=== PATIENT | male | born 1945 | race African-American/Black ===

== ENCOUNTER 2018-08-10 03:36 | Inpatient (IN) | payer OTHER ==
[~2018-08-10] VITALS: Ht 160 cm; Wt 65.8 kg
[2018-08-10] MEDS ORDERED: SODIUM CHLORIDE 0.9% 1,000 ML IV SCH (04:15)
[2018-08-10] MEDS: ALBUTEROL (0.083%) 2.5MG/3ML NEB HHN SCH ×2 (04:30→06:08)
[2018-08-10] MEDS ORDERED: IPRATROPIUM BROMIDE (0.02%) 0.5MG/2.5ML NEB ONE (04:44)
[2018-08-10] MEDS ORDERED: METHYLPREDNISOLONE SOD SUCC 125 MG/2 ML VIAL IV STA (04:49)
[2018-08-10] MEDS ORDERED: IPRATROPIUM BROMIDE (0.02%) 0.5MG/2.5ML NEB HHN STA (04:49)
[2018-08-10 04:59] LABS: BG BASE EXCESS -1.7 mmol/L (-2.0-2.0); BG CARBOXYHEMOGLOBIN 0.4 % (0.5-1.5); BG DEOXYHEMOGLOBIN 2.4 % (0.0-5.0); BG FRACTION INSPIRED OXYGEN 45; BG HCO3 ACT 23.2 mmol/L (22.0-26.0); BG METHEMOGLOBIN 0.3 % (0.0-1.5); BG OXYGEN SATURATION 97.6 % (92.0-98.5); BG OXYHEMOGLOBIN 96.9 % (94.0-97.0); BG PCO2 40.1 mmHg (35.0-45.0); BG PH 7.381 (7.350-7.450); BG PO2 103.9 mmHg (75.0-100.0); BG SAMPLE SITE RIGHT RADIAL; BG TOTAL HEMOGLOBIN 10.2 g/dL (12.0-18.0); BG VENT MODE MASK - SIMPLE
[2018-08-10 05:20] LABS: HEMATOCRIT. 31.4 % (42.0-52.0); HEMOGLOBIN. 9.8 g/dL (14.0-18.0); MEAN CORPUSCULAR HEMOGLOBIN 23.7 pg (28.0-32.0); MEAN CORPUSCULAR VOLUME 75.8 fL (80.0-94.0); MEAN PLATELET VOLUME 7.9 fl (7.4-10.4); PLATELET 373 x1000/uL (130-400); RED BLOOD CELL COUNT 4.14 mill/uL (4.7-6.1); RED CELL DISTRIBUTION WIDTH 20.9 % (11.6-14.6)
[2018-08-10 05:23] LABS: CHLORIDE 106 mEq/L (98-107)
[2018-08-10 06:37] LABS: PLATELET ESTIMATE NORMAL
[2018-08-10] MEDS ORDERED: DOCUSATE SODIUM 100MG CAPSULE PO PRN (13:45)
[2018-08-10] MEDS ORDERED: ONDANSETRON HCL 4MG/2ML INJ IV PRN (13:45)
[2018-08-10] MEDS ORDERED: ACETAMINOPHEN 650MG SUPP PR PRN (13:45)
[2018-08-10] MEDS ORDERED: IPRATROPIUM/ALBUTEROL 0.5-3(2.5)MG/3ML NEB INH PRN (13:45)
[2018-08-10] MEDS ORDERED: ACETAMINOPHEN 325MG TABLET PO PRN (13:45)
[2018-08-10] MEDS ORDERED: GUAIFENESIN 200MG/10ML SUGAR FREE UDC PO PRN (13:45)
[2018-08-10] MEDS ORDERED: DEXTROSE 50% WATER 50ML SYRINGE IV PRN (13:45)
[2018-08-10] MEDS ORDERED: IPRATROPIUM/ALBUTEROL 0.5-3(2.5)MG/3ML NEB INH SCH (13:45)
[2018-08-10] MEDS ORDERED: CLONIDINE 0.1MG TABLET PO PRN (13:45)
[2018-08-10] MEDS ORDERED: HYDROCODONE/ACETAMINOPHEN 5/325MG TABLET PO PRN (13:45)
[2018-08-10] MEDS ORDERED: LORAZEPAM 0.5MG TABLET PO PRN (13:45)
[2018-08-10] MEDS ORDERED: MAGNESIUM/ALUMINUM HYDROXIDE/SIMETHICONE 30ML UDC PO PRN (13:45)
[2018-08-10] MEDS ORDERED: NA PHOS,M-B/NA PHOS,DI-BA ENEMA 118ML PR PRN (13:45)
[2018-08-10] MEDS ORDERED: DIPHENHYDRAMINE 50MG/ML VIAL IV PRN (13:45)
[2018-08-10] MEDS ORDERED: LOSARTAN POTASSIUM 25 MG TABLET PO SCH (14:00)
[2018-08-10] MEDS ORDERED: POTASSIUM CHLORIDE 20MEQ TABLET SR PO ONE (14:00)
[2018-08-10] MEDS ORDERED: LEVOFLOXACIN 500MG PREMIX 100 ML IV SCH ×2 (14:00→14:30)
[2018-08-10] MEDS: AMLODIPINE 5MG TABLET PO SCH (15:00)
[2018-08-10] MEDS: METHYLPREDNISOLONE SOD SUCC 40 MG/ML VIAL IV SCH ×2 (15:06→23:04)
[2018-08-10 15:59] LABS: BG BASE EXCESS -2.1 mmol/L (-2.0-2.0); BG CARBOXYHEMOGLOBIN 0.7 % (0.5-1.5); BG DEOXYHEMOGLOBIN 9.7 % (0.0-5.0); BG FRACTION INSPIRED OXYGEN 21; BG HCO3 ACT 21.7 mmol/L (22.0-26.0); BG METHEMOGLOBIN 0.4 % (0.0-1.5); BG OXYGEN SATURATION 90.2 % (92.0-98.5); BG OXYHEMOGLOBIN 89.2 % (94.0-97.0); BG PCO2 33.4 mmHg (35.0-45.0); BG PO2 58.6 mmHg (75.0-100.0); BG SAMPLE SITE RIGHT RADIAL; BG TOTAL HEMOGLOBIN 10.6 g/dL (12.0-18.0); BG VENT MODE ROOM AIR
[2018-08-10 16:34] VITALS: BP 176/74
[2018-08-10 17:00] VITALS: BP 134/69
[2018-08-10] MEDS: BLOOD SUGAR DIAGNOSTIC STRIP TEST SCH ×2 (18:05→20:19)
[2018-08-10] MEDS: FUROSEMIDE 40MG/4ML VIAL IV SCH (18:10)
[2018-08-10] MEDS: LOSARTAN POTASSIUM 25 MG TABLET PO SCH (18:10)
[2018-08-10] MEDS: INSULIN LISPRO 100 UNITS/ML SUBCUT SCH ×2 (18:11→20:54)
[2018-08-10] MEDS: ENOXAPARIN 40MG/0.4ML SYR SUBCUT SCH (18:11)
[2018-08-10 20:00] VITALS: BP 153/74
[2018-08-10] MEDS: IPRATROPIUM/ALBUTEROL 0.5-3(2.5)MG/3ML NEB INH SCH (21:48)
[2018-08-11] VITALS: BP_SYST 165; BP_SYST 166; BP_DIAS 56; BP_DIAS 76
[2018-08-11] MEDS ORDERED: P20 MT (01:53)
[2018-08-11] MEDS ORDERED: POLY17PO3 MT (01:53)
[2018-08-11] MEDS ORDERED: CARV25TA47 MT (01:53)
[2018-08-11] MEDS ORDERED: AMLO10TA80 MT (01:53)
[2018-08-11] MEDS ORDERED: TAMS0.4C31 MT (01:53)
[2018-08-11] MEDS ORDERED: LORA10CA MT (01:53)
[2018-08-11] MEDS ORDERED: FURO-152 MT (01:53)
[2018-08-11] MEDS ORDERED: LOSA100T32 MT (01:53)
[2018-08-11] MEDS ORDERED: LEVA1.256 IH (01:53)
[2018-08-11] MEDS ORDERED: METF-414 MT (01:53)
[2018-08-11] MEDS ORDERED: LEVA1.2526 NEB (01:53)
[2018-08-11] MEDS ORDERED: CHOL100036 MT (01:53)
[2018-08-11] MEDS ORDERED: MONT10TA24 MT (01:53)
[2018-08-11] MEDS ORDERED: FLUT1DIS6 INH (01:53)
[2018-08-11] MEDS ORDERED: FERR-71 MT (01:53)
[2018-08-11] MEDS ORDERED: SITA100T11 MT (01:53)
[2018-08-11] MEDS ORDERED: OMEP20CA5 MT (01:53)
[2018-08-11] MEDS: IPRATROPIUM/ALBUTEROL 0.5-3(2.5)MG/3ML NEB INH SCH ×5 (02:44→16:13)
[2018-08-11 04:00] VITALS: BP 170/79
[2018-08-11 04:26] LABS: CLARITY URINE CLEAR (CLEAR); COLOR URINE YELLOW (YELLOW); KETONES URINE TRACE (NEGATIVE); LEUKOCYTE ESTERASE URINE TRACE (NEGATIVE); NITRITE URINE NEGATIVE (NEGATIVE); OCCULT BLOOD URINE TRACE (NEGATIVE); PH URINE 5.5 (4.5-8.0); PROTEIN URINE NEGATIVE (NEGATIVE); SPECIFIC GRAVITY URINE 1.011 (1.005-1.030); UROBILINOGEN URINE 0.2 E.U./dL (0.2-1.0)
[2018-08-11 04:41] LABS: *AMPHETAMINES SCREEN URINE NEGATIVE (NEGATIVE); *BARBITURATES SCREEN URINE NEGATIVE (NEGATIVE); *BENZODIAZEPINES SCREEN URINE NEGATIVE (NEGATIVE); *COCAINE SCREEN URINE NEGATIVE (NEGATIVE); METHADONE URINE SCREEN NEGATIVE (NEGATIVE); OPIATES URINE SCREEN NEGATIVE (NEGATIVE); PHENCYCLIDINE URINE SCREEN NEGATIVE (NEGATIVE)
[2018-08-11 04:42] LABS: CANNABINOID URINE SCREEN NEGATIVE (NEGATIVE)
[2018-08-11] MEDS: BLOOD SUGAR DIAGNOSTIC STRIP TEST SCH ×3 (05:50→17:13)
[2018-08-11] MEDS: METHYLPREDNISOLONE SOD SUCC 40 MG/ML VIAL IV SCH ×2 (05:51→14:00)
[2018-08-11] MEDS: INSULIN LISPRO 100 UNITS/ML SUBCUT SCH ×3 (06:16→17:22)
[2018-08-11 06:54] LABS: HEMATOCRIT. 29.1 % (42.0-52.0); HEMOGLOBIN. 9.2 g/dL (14.0-18.0); MEAN CORPUSCULAR HEMOGLOBIN 23.7 pg (28.0-32.0); MEAN CORPUSCULAR VOLUME 74.8 fL (80.0-94.0); MEAN PLATELET VOLUME 8.1 fl (7.4-10.4); PLATELET 350 x1000/uL (130-400); RED BLOOD CELL COUNT 3.89 mill/uL (4.7-6.1); RED CELL DISTRIBUTION WIDTH 20.7 % (11.6-14.6)
[2018-08-11 07:21] LABS: CHLORIDE 107 mEq/L (98-107)
[2018-08-11 07:32] LABS: HDL CHOLESTEROL 52 mg/dL (40-59)
[2018-08-11 07:34] LABS: LDL CHOLESTEROL 57 mg/dL (5-100); T4 FREE 1.14 ng/dL (0.76-1.46)
[2018-08-11 08:24] VITALS: BP 158/57
[2018-08-11] MEDS: AMLODIPINE 5MG TABLET PO SCH (08:38)
[2018-08-11] MEDS: LOSARTAN POTASSIUM 25 MG TABLET PO SCH (08:39)
[2018-08-11] MEDS: FUROSEMIDE 40MG/4ML VIAL IV SCH ×2 (08:39→17:00)
[2018-08-11] MEDS ORDERED: POTASSIUM CHLORIDE INJ 40 MEQ in DEXT 5% WATER 250 ML IV NR (11:00)
[2018-08-11] MEDS ORDERED: INSULIN GLARGINE UD 100 UNITS/ML SYR SUBCUT NR (11:00)
[2018-08-11 12:00] VITALS: BP 142/61
[2018-08-11 12:35] LABS: PLATELET ESTIMATE NORMAL
[2018-08-11] MEDS ORDERED: POTASSIUM CHLORIDE 20MEQ TABLET SR PO SCH (13:00)
[2018-08-11] MEDS ORDERED: CARVEDILOL 3.125 MG TABLET PO NR (13:00)
[2018-08-11 13:42] VITALS: BP 142/61
[2018-08-11] MEDS ORDERED: LEVOFLOXACIN 500MG PREMIX 100 ML IV SCH (14:00)
[2018-08-11 16:01] VITALS: BP 160/79
[2018-08-11] MEDS: ENOXAPARIN 40MG/0.4ML SYR SUBCUT SCH (17:20)
== END 2018-08-11 19:55 | disposition home or self-care (01) | DRG 291 ==
LOC: ER 03:36 → 8WST 05:41 → EDBEDREQTM 05:45 → EDBEDREQ 05:45 → ENRESERV 07:04 → CANRESERV 07:04 → ENRESERV 15:17
PROVIDERS: ADMIT Internal Medicine; ATTEND Internal Medicine
DX: I11.0 Hypertensive heart disease with heart failure (principal); J18.9 Pneumonia, unspecified organism; J44.1 Chronic obstructive pulmonary disease with (acute) exacerbation; E87.2 Acidosis; J44.0 Chronic obstructive pulmonary disease with (acute) lower respiratory infection; I69.354 Hemiplegia and hemiparesis following cerebral infarction affecting left non-dominant side; R65.10 Systemic inflammatory response syndrome (SIRS) of non-infectious origin without acute organ dysfunction; I50.43 Acute on chronic combined systolic (congestive) and diastolic (congestive) heart failure; E11.9 Type 2 diabetes mellitus without complications; E78.5 Hyperlipidemia, unspecified; E87.6 Hypokalemia; D64.9 Anemia, unspecified; Z82.49 Family history of ischemic heart disease and other diseases of the circulatory system; Z87.891 Personal history of nicotine dependence; Z83.3 Family history of diabetes mellitus
CPT/HCPCS: 36415; 36600; 71045; 80061; 80305; 82375; 82805; 82962; 83036; 83605; 83880; 84439; 84443; 84484; 85379; 87077; 93005; 93306; 93970; 94640; 97162; 99291; C1893; J1650; J1815; J1940; J1956; J2920; J2930; J3480; J7040; J7060; J7611; J7620

== ENCOUNTER 2019-04-12 10:06 | Inpatient (IN) | payer OTHER ==
[~2019-04-12] VITALS: Ht 160 cm; Wt 74.4 kg
[~2019-04-12 10:06] MED LIST: AMLO10TA80 MT; CARV25TA47 MT; CHOL100036 MT; FERR-71 MT; FLUT1DIS6 INH; FURO-152 MT; LEVA1.2526 NEB; LEVA1.256 IH; LORA10CA MT; LOSA100T32 MT; METF-414 MT; MONT10TA24 MT; OMEP20CA14 MT; POLY17PO3 MT; SITA100T11 MT; TAMS0.4C31 MT
[2019-04-12] MEDS ORDERED: METHYLPREDNISOLONE SOD SUCC 125 MG/2 ML VIAL IV STA (10:10)
[2019-04-12] MEDS ORDERED: ALBUTEROL (0.083%) 2.5MG/3ML NEB HHN STA (10:10)
[2019-04-12] MEDS ORDERED: IPRATROPIUM BROMIDE (0.02%) 0.5MG/2.5ML NEB HHN STA (10:10)
[2019-04-12] MEDS ORDERED: FUROSEMIDE 40MG/4ML VIAL IV ONE (10:15)
[2019-04-12 10:33] LABS: BASOPHILS % 0.3 % (0.0-2.0); EOSINOPHILS % 0.3 % (0.0-5.0); HEMATOCRIT. 39.8 % (42.0-52.0); HEMOGLOBIN. 13.3 g/dL (14.0-18.0); LYMPHOCYTES % 8.8 % (20.0-50.0); MEAN CORPUSCULAR HEMOGLOBIN 30.9 pg (28.0-32.0); MEAN CORPUSCULAR VOLUME 92.3 fL (80.0-94.0); MEAN PLATELET VOLUME 9.7 fl (7.4-10.4); MONOCYTES % 5.8 % (2.0-8.0); NEUTROPHILS % 84.8 % (40.0-76.0); PLATELET 196 x1000/uL (130-400); RED BLOOD CELL COUNT 4.31 mill/uL (4.7-6.1); RED CELL DISTRIBUTION WIDTH 14.4 % (11.6-14.6)
[2019-04-12 10:38] LABS: CHLORIDE 106 mEq/L (98-107)
[2019-04-12 17:00] VITALS: BP 164/86
[2019-04-12] MEDS ORDERED: ONDANSETRON HCL 4MG/2ML INJ IV PRN (17:45)
[2019-04-12] MEDS ORDERED: DEXTROSE 50% WATER 50ML SYRINGE IV PRN (17:45)
[2019-04-12] MEDS ORDERED: HYDROCODONE/ACETAMINOPHEN 5/325MG TABLET PO PRN (17:45)
[2019-04-12] MEDS ORDERED: DOCUSATE SODIUM 100MG CAPSULE PO PRN (17:45)
[2019-04-12] MEDS ORDERED: IPRATROPIUM/ALBUTEROL 0.5-3(2.5)MG/3ML NEB NEB PRN (17:45)
[2019-04-12] MEDS ORDERED: CLONIDINE 0.1MG TABLET PO PRN (17:45)
[2019-04-12] MEDS ORDERED: LORAZEPAM 0.5MG TABLET PO PRN (17:45)
[2019-04-12] MEDS ORDERED: MAGNESIUM/ALUMINUM HYDROXIDE/SIMETHICONE 30ML UDC PO PRN (17:45)
[2019-04-12] MEDS ORDERED: GUAIFENESIN 200MG/10ML SUGAR FREE UDC PO PRN (17:45)
[2019-04-12] MEDS ORDERED: ACETAMINOPHEN 325MG TABLET PO PRN (17:45)
[2019-04-12] MEDS ORDERED: NA PHOS,M-B/NA PHOS,DI-BA ENEMA 118ML PR PRN (17:45)
[2019-04-12] MEDS ORDERED: ACETAMINOPHEN 650MG SUPP PR PRN (17:45)
[2019-04-12] MEDS ORDERED: DIPHENHYDRAMINE 50MG/ML VIAL IV PRN (17:45)
[2019-04-12] MEDS: FERROUS SULFATE 325MG TABLET PO SCH ×2 (18:10→19:04)
[2019-04-12] MEDS: MONTELUKAST SODIUM 10MG TABLET PO SCH (19:04)
[2019-04-12] MEDS: AMLODIPINE 10MG TABLET PO SCH (19:04)
[2019-04-12] MEDS: METFORMIN HCL 500MG TABLET PO SCH (19:04)
[2019-04-12] MEDS: METHYLPREDNISOLONE SOD SUCC 40 MG/ML VIAL IV SCH (19:04)
[2019-04-12] MEDS: INSULIN LISPRO 100 UNITS/ML SUBCUT SCH ×2 (19:23→21:54)
[2019-04-12] MEDS: BLOOD SUGAR DIAGNOSTIC STRIP TEST SCH ×2 (19:24→21:53)
[2019-04-12] MEDS ORDERED: INSULIN LISPRO 100 UNITS/ML SUBCUT NR (19:52)
[2019-04-12 19:59] LABS: INR 1.1; PROTHROMBIN TIME 10.9 sec (9.6-11.0)
[2019-04-12] MEDS ORDERED: LEVOFLOXACIN 750MG PREMIX 150 ML IV NR (20:00)
[2019-04-12 20:03] LABS: BG BASE EXCESS 1.7 mmol/L (-2.0-2.0); BG CARBOXYHEMOGLOBIN 0.1 % (0.5-1.5); BG DEOXYHEMOGLOBIN 8.3 % (0.0-5.0); BG FRACTION INSPIRED OXYGEN 21; BG HCO3 ACT 25.3 mmol/L (22.0-26.0); BG METHEMOGLOBIN 0.3 % (0.0-1.5); BG OXYGEN SATURATION 91.7 % (92.0-98.5); BG OXYHEMOGLOBIN 91.3 % (94.0-97.0); BG PCO2 36.6 mmHg (35.0-45.0); BG PH 7.458 (7.350-7.450); BG PO2 59.3 mmHg (75.0-100.0); BG SAMPLE SITE RIGHT RADIAL; BG VENT MODE ROOM AIR
[2019-04-12] MEDS: IPRATROPIUM/ALBUTEROL 0.5-3(2.5)MG/3ML NEB NEB SCH (20:30)
[2019-04-12] MEDS: FAMOTIDINE 20MG TABLET PO SCH (20:31)
[2019-04-12] MEDS: ENOXAPARIN 30MG/0.3ML SYR SUBCUT SCH (20:31)
[2019-04-12 21:46] LABS: CLARITY URINE CLEAR (CLEAR); COLOR URINE YELLOW (YELLOW); KETONES URINE NEGATIVE (NEGATIVE); LEUKOCYTE ESTERASE URINE NEGATIVE (NEGATIVE); NITRITE URINE NEGATIVE (NEGATIVE); OCCULT BLOOD URINE NEGATIVE (NEGATIVE); PH URINE 6.5 (4.5-8.0); PROTEIN URINE TRACE (NEGATIVE); SPECIFIC GRAVITY URINE 1.018 (1.005-1.030); UROBILINOGEN URINE 0.2 E.U./dL (0.2-1.0)
[2019-04-12] MEDS ORDERED: INSULIN GLARGINE UD 100 UNITS/ML SYR SUBCUT SCH (22:00)
[2019-04-12 22:03] LABS: *AMPHETAMINES SCREEN URINE NEGATIVE (NEGATIVE); *BARBITURATES SCREEN URINE NEGATIVE (NEGATIVE)
[2019-04-12 22:04] LABS: *BENZODIAZEPINES SCREEN URINE NEGATIVE (NEGATIVE); *COCAINE SCREEN URINE NEGATIVE (NEGATIVE); METHADONE URINE SCREEN NEGATIVE (NEGATIVE); OPIATES URINE SCREEN NEGATIVE (NEGATIVE); PHENCYCLIDINE URINE SCREEN NEGATIVE (NEGATIVE)
[2019-04-12 22:05] LABS: CANNABINOID URINE SCREEN NEGATIVE (NEGATIVE)
[2019-04-12 23:47] LABS: CREATINE KINASE 48 IU/L (39-308)
[2019-04-12 23:48] LABS: CREATINE KINASE MB FRACTION < 1.0 ng/mL (0.5-3.6)
[2019-04-13] VITALS (9 sets, daily range): BP systolic 128–171; BP diastolic 80–106
[2019-04-13] MEDS: IPRATROPIUM/ALBUTEROL 0.5-3(2.5)MG/3ML NEB NEB SCH ×4 (02:55→20:45)
[2019-04-13] MEDS: METHYLPREDNISOLONE SOD SUCC 40 MG/ML VIAL IV SCH ×3 (04:42→17:34)
[2019-04-13] MEDS: BLOOD SUGAR DIAGNOSTIC STRIP TEST SCH ×4 (05:33→19:57)
[2019-04-13] MEDS: FERROUS SULFATE 325MG TABLET PO SCH ×2 (08:10→17:27)
[2019-04-13] MEDS: INSULIN LISPRO 100 UNITS/ML SUBCUT SCH ×4 (08:10→19:57)
[2019-04-13 08:43] LABS: BASOPHILS % 0.1 % (0.0-2.0); HEMOGLOBIN. 14.5 g/dL (14.0-18.0); LYMPHOCYTES % 7.3 % (20.0-50.0); MEAN CORPUSCULAR HEMOGLOBIN 31.1 pg (28.0-32.0); MEAN CORPUSCULAR VOLUME 92.2 fL (80.0-94.0); MEAN PLATELET VOLUME 9.9 fl (7.4-10.4); MONOCYTES % 3.7 % (2.0-8.0); NEUTROPHILS % 88.9 % (40.0-76.0); PLATELET 218 x1000/uL (130-400); RED BLOOD CELL COUNT 4.67 mill/uL (4.7-6.1)
[2019-04-13] MEDS ORDERED: CHOLECALCIFEROL (D3) 1000 UNIT TABLET PO SCH (09:00)
[2019-04-13] MEDS ORDERED: LINAGLIPTIN 5MG TABLET PO SCH (09:00)
[2019-04-13] MEDS ORDERED: CHOLECALCIFEROL MT SCH (09:00)
[2019-04-13] MEDS ORDERED: LOSARTAN POTASSIUM 100 MG TABLET PO SCH (09:00)
[2019-04-13] MEDS ORDERED: TAMSULOSIN HCL 0.4MG SR CAPSULE PO SCH (09:00)
[2019-04-13] MEDS ORDERED: MEDICATION NOT ON FORMULARY EA (Loratadine (Claritin) 1 CAP) MT SCH (09:00)
[2019-04-13] MEDS ORDERED: FUROSEMIDE 40MG/4ML VIAL IVP SCH (09:00)
[2019-04-13] MEDS ORDERED: LORATADINE 10MG TABLET PO SCH (09:00)
[2019-04-13] MEDS ORDERED: MEDICATION NOT ON FORMULARY EA (Sitagliptin Phosphate (Januvia) 1 TAB) MT SCH (09:00)
[2019-04-13] MEDS ORDERED: POLYETHYLENE GLYCOL 3350 (17GM) 1 DOSE PACK PO SCH (09:00)
[2019-04-13 09:09] LABS: CHLORIDE 103 mEq/L (98-107)
[2019-04-13 09:16] LABS: LDL CHOLESTEROL 85 mg/dL (5-100)
[2019-04-13 09:17] LABS: CREATINE KINASE 51 IU/L (39-308)
[2019-04-13 09:18] LABS: CREATINE KINASE MB FRACTION 1.2 ng/mL (0.5-3.6); HDL CHOLESTEROL 76 mg/dL (40-59); T4 FREE 1.25 ng/dL (0.76-1.46)
[2019-04-13] MEDS: AMLODIPINE 10MG TABLET PO SCH (09:44)
[2019-04-13] MEDS: METFORMIN HCL 500MG TABLET PO SCH ×2 (09:45→17:34)
[2019-04-13] MEDS: ENOXAPARIN 30MG/0.3ML SYR SUBCUT SCH (09:45)
[2019-04-13] MEDS ORDERED: POTASSIUM CHLORIDE 20MEQ TABLET SR PO NR (11:45)
[2019-04-13] MEDS ORDERED: LEVOFLOXACIN 500MG PREMIX 100 ML IV SCH (14:00)
[2019-04-13] MEDS ORDERED: P20 PO (15:36)
[2019-04-13] MEDS ORDERED: METF-416 MT (15:36)
[2019-04-13] MEDS ORDERED: LEVO500T2 MT (15:36)
[2019-04-13] MEDS: MONTELUKAST SODIUM 10MG TABLET PO SCH (17:34)
[2019-04-13] MEDS ORDERED: DILTIAZEM HCL 30MG TABLET PO SCH (18:00)
[2019-04-13] MEDS: FAMOTIDINE 20MG TABLET PO SCH (19:49)
[2019-04-14] MEDS ORDERED: ENOXAPARIN 40MG/0.4ML SYR SUBCUT SCH (09:00)
== END 2019-04-13 21:31 | disposition home health service (06) | DRG 190 ==
LOC: ER 10:06 → 7WST 15:48 → EDBEDREQ 15:57 → ENRESERV 16:05
PROVIDERS: ADMIT Internal Medicine; ATTEND Internal Medicine
PROC: 5A09357 Assistance with Respiratory Ventilation, Less than 24 Consecutive Hours, Continuous Positive Airway Pressure (ICD-10-PCS; principal; 2019-04-12)
DX: J44.1 Chronic obstructive pulmonary disease with (acute) exacerbation (principal); I50.43 Acute on chronic combined systolic (congestive) and diastolic (congestive) heart failure; I69.354 Hemiplegia and hemiparesis following cerebral infarction affecting left non-dominant side; D64.9 Anemia, unspecified; E11.65 Type 2 diabetes mellitus with hyperglycemia; E78.5 Hyperlipidemia, unspecified; J06.9 Acute upper respiratory infection, unspecified; T38.0X5A Adverse effect of glucocorticoids and synthetic analogues, initial encounter; I11.0 Hypertensive heart disease with heart failure; N40.0 Benign prostatic hyperplasia without lower urinary tract symptoms; Z79.899 Other long term (current) drug therapy; Z79.84 Long term (current) use of oral hypoglycemic drugs; Z87.891 Personal history of nicotine dependence; Y92.89 Other specified places as the place of occurrence of the external cause
CPT/HCPCS: 36415; 36600; 71045; 80053; 80061; 80305; 81003; 82375; 82550; 82553; 82805; 82962; 83036; 83880; 84439; 84443; 84484; 85025; 87077; 87186; 87804; 93005; 93306; 93970; 94640; 94660; 96374; 97162; 99291; J1650; J1815; J1940; J1956; J2920; J2930; J7611; J7620

== ENCOUNTER 2019-05-09 09:17 | Inpatient (IN) | payer OTHER ==
[~2019-05-09] VITALS: Ht 160 cm; Wt 76.7 kg
[2019-05-09] VITALS (8 sets, daily range): BP systolic 136–156; BP diastolic 81–98
[~2019-05-09 09:17] MED LIST changes: -FERR-71 MT; +LEVO500T2 MT; -METF-414 MT; +METF-416 MT; -MONT10TA24 MT; +MONT10TA26 MT; +P20 PO
[2019-05-09] MEDS ORDERED: METHYLPREDNISOLONE SOD SUCC 125 MG/2 ML VIAL IV STA (09:27)
[2019-05-09] MEDS ORDERED: ALBUTEROL (0.083%) 2.5MG/3ML NEB HHN STA (09:27)
[2019-05-09] MEDS ORDERED: MAGNESIUM 2 G PREMIX 50 ML IV STA (09:27)
[2019-05-09] MEDS ORDERED: IPRATROPIUM BROMIDE (0.02%) 0.5MG/2.5ML NEB HHN STA (09:27)
[2019-05-09 10:15] LABS: BASOPHILS % 0.6 % (0.0-2.0); EOSINOPHILS % 1.2 % (0.0-5.0); HEMATOCRIT. 37.4 % (42.0-52.0); HEMOGLOBIN. 12.7 g/dL (14.0-18.0); LYMPHOCYTES % 21.9 % (20.0-50.0); MEAN CORPUSCULAR VOLUME 91.5 fL (80.0-94.0); MEAN PLATELET VOLUME 10.1 fl (7.4-10.4); MONOCYTES % 8.7 % (2.0-8.0); NEUTROPHILS % 67.6 % (40.0-76.0); PLATELET 236 x1000/uL (130-400); RED BLOOD CELL COUNT 4.09 mill/uL (4.7-6.1); RED CELL DISTRIBUTION WIDTH 14.3 % (11.6-14.6)
[2019-05-09 10:23] LABS: CHLORIDE 106 mEq/L (98-107)
[2019-05-09] MEDS ORDERED: MAGNESIUM/ALUMINUM HYDROXIDE/SIMETHICONE 30ML UDC PO PRN (13:15)
[2019-05-09] MEDS ORDERED: ONDANSETRON HCL 4MG/2ML INJ IV PRN (13:15)
[2019-05-09] MEDS ORDERED: GUAIFENESIN 200MG/10ML SUGAR FREE UDC PO PRN (13:15)
[2019-05-09] MEDS ORDERED: IPRATROPIUM/ALBUTEROL 0.5-3(2.5)MG/3ML NEB NEB PRN (13:15)
[2019-05-09] MEDS ORDERED: NA PHOS,M-B/NA PHOS,DI-BA ENEMA 118ML PR PRN (13:15)
[2019-05-09] MEDS ORDERED: LORAZEPAM 0.5MG TABLET PO PRN ×2 (13:15→14:45)
[2019-05-09] MEDS ORDERED: ACETAMINOPHEN 325MG TABLET PO PRN (13:15)
[2019-05-09] MEDS ORDERED: HYDROCODONE/ACETAMINOPHEN 5/325MG TABLET PO PRN ×2 (13:15→14:45)
[2019-05-09] MEDS ORDERED: ACETAMINOPHEN 650MG SUPP PR PRN (13:15)
[2019-05-09] MEDS ORDERED: LEVOFLOXACIN 500MG PREMIX 100 ML IV SCH (13:15)
[2019-05-09] MEDS ORDERED: IPRATROPIUM/ALBUTEROL 0.5-3(2.5)MG/3ML NEB NEB SCH (13:15)
[2019-05-09] MEDS ORDERED: DIPHENHYDRAMINE 50MG/ML VIAL IV PRN (13:15)
[2019-05-09] MEDS ORDERED: METHYLPREDNISOLONE SOD SUCC 40 MG/ML VIAL IV SCH (13:15)
[2019-05-09] MEDS ORDERED: DOCUSATE SODIUM 100MG CAPSULE PO PRN (13:15)
[2019-05-09] MEDS ORDERED: CLONIDINE 0.1MG TABLET PO PRN (13:15)
[2019-05-09] MEDS ORDERED: FUROSEMIDE 40MG/4ML VIAL IVP SCH (13:15)
[2019-05-09 13:27] LABS: BG BASE EXCESS -3.9 mmol/L (-2.0-2.0); BG CARBOXYHEMOGLOBIN 0.3 % (0.5-1.5); BG DEOXYHEMOGLOBIN 3.3 % (0.0-5.0); BG FRACTION INSPIRED OXYGEN 40; BG HCO3 ACT 19.5 mmol/L (22.0-26.0); BG METHEMOGLOBIN 0.1 % (0.0-1.5); BG OXYGEN SATURATION 96.7 % (92.0-98.5); BG OXYHEMOGLOBIN 96.3 % (94.0-97.0); BG PCO2 30.4 mmHg (35.0-45.0); BG PH 7.424 (7.350-7.450); BG SAMPLE SITE RIGHT RADIAL; BG TOTAL HEMOGLOBIN 12.3 g/dL (12.0-18.0); BG VENT MODE NASAL CANNULA
[2019-05-09] MEDS ORDERED: AMLODIPINE 10MG TABLET PO SCH (14:00)
[2019-05-09] MEDS ORDERED: DEXTROSE 50% WATER 50ML SYRINGE IV PRN ×2 (14:15→14:45)
[2019-05-09 14:49] LABS: CREATINE KINASE 82 IU/L (39-308)
[2019-05-09 14:52] LABS: CREATINE KINASE MB FRACTION < 1.0 ng/mL (0.5-3.6)
[2019-05-09] MEDS ORDERED: BLOOD SUGAR DIAGNOSTIC STRIP TEST SCH (17:00)
[2019-05-09] MEDS: BLOOD SUGAR DIAGNOSTIC STRIP TEST SCH ×2 (17:47→21:00)
[2019-05-09] MEDS: METFORMIN HCL 500MG TABLET PO SCH (18:01)
[2019-05-09] MEDS: AMLODIPINE 10MG TABLET PO SCH (18:01)
[2019-05-09] MEDS: METHYLPREDNISOLONE SOD SUCC 40 MG/ML VIAL IV SCH (18:01)
[2019-05-09] MEDS: FUROSEMIDE 40MG/4ML VIAL IVP SCH (18:01)
[2019-05-09] MEDS: LEVOFLOXACIN 500MG PREMIX 100 ML IV SCH (18:02)
[2019-05-09] MEDS: INSULIN LISPRO 100 UNITS/ML SUBCUT SCH ×2 (18:03→22:08)
[2019-05-09] MEDS ORDERED: INSULIN LISPRO 100 UNITS/ML SUBCUT SCH (18:20)
[2019-05-09] MEDS: IPRATROPIUM/ALBUTEROL 0.5-3(2.5)MG/3ML NEB NEB SCH (20:22)
[2019-05-10] VITALS (18 sets, daily range): BP systolic 130–148; BP diastolic 78–97
[2019-05-10 00:33] LABS: CREATINE KINASE 74 IU/L (39-308)
[2019-05-10 00:34] LABS: CREATINE KINASE MB FRACTION < 1.0 ng/mL (0.5-3.6)
[2019-05-10] MEDS: METHYLPREDNISOLONE SOD SUCC 40 MG/ML VIAL IV SCH ×3 (01:08→16:20)
[2019-05-10] MEDS: IPRATROPIUM/ALBUTEROL 0.5-3(2.5)MG/3ML NEB NEB SCH ×4 (02:27→19:53)
[2019-05-10] MEDS: BLOOD SUGAR DIAGNOSTIC STRIP TEST SCH ×4 (07:51→21:00)
[2019-05-10] MEDS: INSULIN LISPRO 100 UNITS/ML SUBCUT SCH ×4 (08:32→22:14)
[2019-05-10] MEDS: METFORMIN HCL 500MG TABLET PO SCH ×2 (08:39→18:17)
[2019-05-10] MEDS: AMLODIPINE 10MG TABLET PO SCH (08:40)
[2019-05-10] MEDS: TAMSULOSIN HCL 0.4MG SR CAPSULE PO SCH (08:40)
[2019-05-10] MEDS: LOSARTAN POTASSIUM 100 MG TABLET PO SCH (08:40)
[2019-05-10] MEDS: CHOLECALCIFEROL (D3) 1000 UNIT TABLET PO SCH (08:40)
[2019-05-10] MEDS: LINAGLIPTIN 5MG TABLET PO SCH (08:46)
[2019-05-10] MEDS: FUROSEMIDE 40MG/4ML VIAL IVP SCH (08:47)
[2019-05-10] MEDS ORDERED: TAMSULOSIN HCL 0.4MG SR CAPSULE PO SCH (09:00)
[2019-05-10] MEDS ORDERED: LOSARTAN POTASSIUM 100 MG TABLET PO SCH (09:00)
[2019-05-10 13:27] LABS: HEMATOCRIT. 37.9 % (42.0-52.0); HEMOGLOBIN. 12.6 g/dL (14.0-18.0); MEAN CORPUSCULAR HEMOGLOBIN 30.9 pg (28.0-32.0); MEAN PLATELET VOLUME 9.8 fl (7.4-10.4); PLATELET 216 x1000/uL (130-400); RED BLOOD CELL COUNT 4.07 mill/uL (4.7-6.1); RED CELL DISTRIBUTION WIDTH 14.2 % (11.6-14.6)
[2019-05-10 13:41] LABS: CHLORIDE 106 mEq/L (98-107)
[2019-05-10] MEDS ORDERED: POTASSIUM CHLORIDE 20MEQ TABLET SR PO NR (15:30)
[2019-05-10] MEDS: ACETYLCYSTEINE 100MG/ML 10% VIAL 4ML INH SCH ×2 (16:18→19:53)
[2019-05-10 16:42] LABS: PLATELET ESTIMATE NORMAL
[2019-05-10] MEDS: LEVOFLOXACIN 500MG PREMIX 100 ML IV SCH (18:34)
[2019-05-11] VITALS (17 sets, daily range): BP systolic 132–156; BP diastolic 76–91
[2019-05-11] MEDS: METHYLPREDNISOLONE SOD SUCC 40 MG/ML VIAL IV SCH ×3 (00:29→17:03)
[2019-05-11] MEDS: IPRATROPIUM/ALBUTEROL 0.5-3(2.5)MG/3ML NEB NEB SCH ×2 (01:10→07:33)
[2019-05-11] MEDS: ACETYLCYSTEINE 100MG/ML 10% VIAL 4ML INH SCH ×2 (07:33→14:47)
[2019-05-11] MEDS: BLOOD SUGAR DIAGNOSTIC STRIP TEST SCH ×4 (07:36→21:11)
[2019-05-11] MEDS: FUROSEMIDE 40MG/4ML VIAL IVP SCH (09:00)
[2019-05-11] MEDS: CHOLECALCIFEROL (D3) 1000 UNIT TABLET PO SCH (09:01)
[2019-05-11] MEDS: METFORMIN HCL 500MG TABLET PO SCH ×2 (09:01→18:38)
[2019-05-11] MEDS: AMLODIPINE 10MG TABLET PO SCH (09:01)
[2019-05-11] MEDS: TAMSULOSIN HCL 0.4MG SR CAPSULE PO SCH (09:01)
[2019-05-11] MEDS: LOSARTAN POTASSIUM 100 MG TABLET PO SCH (09:02)
[2019-05-11] MEDS: LINAGLIPTIN 5MG TABLET PO SCH (09:06)
[2019-05-11] MEDS: INSULIN LISPRO 100 UNITS/ML SUBCUT SCH ×4 (09:07→21:16)
[2019-05-11] MEDS ORDERED: LIDOCAINE HCL/PF 1% 2ML VIAL ONE (10:00)
[2019-05-11] MEDS ORDERED: DILTIAZEM HCL 30MG TABLET PO SCH (11:15)
[2019-05-11] MEDS: LEVOFLOXACIN 500MG TABLET PO SCH (12:08)
[2019-05-11] MEDS ORDERED: LEVA1.2526 NEB (13:49)
[2019-05-11] MEDS ORDERED: P20 PO (13:49)
[2019-05-11] MEDS ORDERED: LEVO500T2 MT (13:49)
[2019-05-11] MEDS ORDERED: CARVEDILOL 3.125 MG TABLET PO NR (14:00)
[2019-05-11 14:39] LABS: BG CARBOXYHEMOGLOBIN 1.9 % (0.5-1.5); BG DEOXYHEMOGLOBIN 10.4 % (0.0-5.0); BG FRACTION INSPIRED OXYGEN 21; BG HCO3 ACT 18.7 mmol/L (22.0-26.0); BG METHEMOGLOBIN 0.3 % (0.0-1.5); BG OXYGEN SATURATION 89.4 % (92.0-98.5); BG OXYHEMOGLOBIN 87.4 % (94.0-97.0); BG PCO2 25.6 mmHg (35.0-45.0); BG PH 7.482 (7.350-7.450); BG PO2 57.2 mmHg (75.0-100.0); BG SAMPLE SITE RIGHT RADIAL; BG TOTAL HEMOGLOBIN 14.7 g/dL (12.0-18.0); BG VENT MODE ROOM AIR
[2019-05-11] MEDS: IPRATROPIUM BROMIDE (0.02%) 0.5MG/2.5ML NEB HHN SCH ×2 (14:47→20:45)
[2019-05-11] MEDS: DILTIAZEM HCL 30MG TABLET PO SCH ×2 (14:58→21:13)
[2019-05-11 16:27] LABS: HEMATOCRIT 40.4 % (42.0-52.0); HEMOGLOBIN 13.7 g/dL (14.0-18.0); MEAN CORPUSCULAR HEMOGLOBIN 31.6 pg (28.0-32.0); MEAN CORPUSCULAR VOLUME 93.2 fL (80.0-94.0); PLATELET 259 x1000/uL (130-400); RED BLOOD CELL COUNT 4.34 mill/uL (4.7-6.1); RED CELL DISTRIBUTION WIDTH 14.4 % (11.6-14.6)
[2019-05-11 16:42] LABS: CHLORIDE 105 mEq/L (98-107)
[2019-05-11] MEDS: CARVEDILOL 3.125 MG TABLET PO SCH (21:13)
[2019-05-12] VITALS (13 sets, daily range): BP systolic 135–175; BP diastolic 82–99
[2019-05-12] MEDS: METHYLPREDNISOLONE SOD SUCC 40 MG/ML VIAL IV SCH ×3 (01:18→16:18)
[2019-05-12] MEDS: ACETYLCYSTEINE 100MG/ML 10% VIAL 4ML INH SCH ×3 (02:17→13:26)
[2019-05-12] MEDS: IPRATROPIUM BROMIDE (0.02%) 0.5MG/2.5ML NEB HHN SCH ×3 (02:17→13:26)
[2019-05-12] MEDS: DILTIAZEM HCL 30MG TABLET PO SCH ×2 (05:25→14:58)
[2019-05-12] MEDS: BLOOD SUGAR DIAGNOSTIC STRIP TEST SCH ×3 (07:30→17:30)
[2019-05-12] MEDS: FUROSEMIDE 40MG/4ML VIAL IVP SCH (08:26)
[2019-05-12] MEDS: CHOLECALCIFEROL (D3) 1000 UNIT TABLET PO SCH (08:26)
[2019-05-12] MEDS: LOSARTAN POTASSIUM 100 MG TABLET PO SCH (08:27)
[2019-05-12] MEDS: CARVEDILOL 3.125 MG TABLET PO SCH (08:27)
[2019-05-12] MEDS: METFORMIN HCL 500MG TABLET PO SCH ×2 (08:27→18:16)
[2019-05-12] MEDS: TAMSULOSIN HCL 0.4MG SR CAPSULE PO SCH (08:27)
[2019-05-12] MEDS: LINAGLIPTIN 5MG TABLET PO SCH (08:27)
[2019-05-12] MEDS: INSULIN LISPRO 100 UNITS/ML SUBCUT SCH ×3 (08:28→17:40)
[2019-05-12] MEDS ORDERED: CARVEDILOL 3.125 MG TABLET PO NR (10:30)
[2019-05-12] MEDS: LEVOFLOXACIN 500MG TABLET PO SCH (11:58)
== END 2019-05-12 19:55 | disposition home or self-care (01) | DRG 189 ==
LOC: ER 09:17 → 5EST 12:06 → ENRESERV 13:12 → ER 14:40
PROVIDERS: ADMIT Internal Medicine; ATTEND Internal Medicine
PROC: 5A09357 Assistance with Respiratory Ventilation, Less than 24 Consecutive Hours, Continuous Positive Airway Pressure (ICD-10-PCS; principal; 2019-05-09)
DX: J96.01 Acute respiratory failure with hypoxia (principal); I50.23 Acute on chronic systolic (congestive) heart failure; J44.1 Chronic obstructive pulmonary disease with (acute) exacerbation; I69.354 Hemiplegia and hemiparesis following cerebral infarction affecting left non-dominant side; I11.0 Hypertensive heart disease with heart failure; N40.0 Benign prostatic hyperplasia without lower urinary tract symptoms; E78.5 Hyperlipidemia, unspecified; E11.65 Type 2 diabetes mellitus with hyperglycemia; D64.9 Anemia, unspecified; R09.02 Hypoxemia; Z87.891 Personal history of nicotine dependence; Z79.899 Other long term (current) drug therapy
CPT/HCPCS: 36415; 36600; 71045; 80048; 80053; 82375; 82550; 82553; 82805; 82962; 83880; 84484; 85025; 85027; 85379; 93005; 93306; 93970; 94640; 94644; 94660; 97116; 97162; 97530; 99291; J1815; J1940; J1956; J2920; J2930; J3475; J3490; J7608

== ENCOUNTER 2019-05-14 18:48 | Inpatient (IN) | payer OTHER ==
[~2019-05-14] VITALS: Ht 160 cm; Wt 74.8 kg
[~2019-05-14 18:48] MED LIST changes: -LEVA1.256 IH
[2019-05-14] MEDS ORDERED: METHYLPREDNISOLONE SOD SUCC 40 MG/ML VIAL IV ONE (20:45)
[2019-05-14] MEDS ORDERED: IPRATROPIUM/ALBUTEROL 0.5-3(2.5)MG/3ML NEB HHN ONE (20:45)
[2019-05-14 21:15] LABS: HEMATOCRIT. 36.7 % (42.0-52.0); HEMOGLOBIN. 12.3 g/dL (14.0-18.0); MEAN CORPUSCULAR HEMOGLOBIN 30.8 pg (28.0-32.0); MEAN CORPUSCULAR VOLUME 91.8 fL (80.0-94.0); MEAN PLATELET VOLUME 9.5 fl (7.4-10.4); PLATELET 226 x1000/uL (130-400); RED CELL DISTRIBUTION WIDTH 14.3 % (11.6-14.6)
[2019-05-14 21:22] LABS: CHLORIDE 102 mEq/L (98-107)
[2019-05-14 21:54] LABS: PLATELET ESTIMATE NORMAL
[2019-05-14 23:14] LABS: BG BASE EXCESS 0.4 mmol/L (-2.0-2.0); BG CARBOXYHEMOGLOBIN 0.2 % (0.5-1.5); BG DEOXYHEMOGLOBIN 8.6 % (0.0-5.0); BG FRACTION INSPIRED OXYGEN 28; BG HCO3 ACT 23.7 mmol/L (22.0-26.0); BG METHEMOGLOBIN 0.1 % (0.0-1.5); BG OXYGEN SATURATION 91.4 % (92.0-98.5); BG OXYHEMOGLOBIN 91.1 % (94.0-97.0); BG PCO2 34.2 mmHg (35.0-45.0); BG PH 7.459 (7.350-7.450); BG PO2 58.1 mmHg (75.0-100.0); BG SAMPLE SITE RIGHT BRACHIAL; BG TOTAL HEMOGLOBIN 12.7 g/dL (12.0-18.0); BG VENT MODE NASAL CANNULA
[2019-05-14] MEDS ORDERED: INSULIN REGULAR (HUMULIN R) UD 100 UNITS/ML SYR IV ONE (23:45)
[2019-05-15] VITALS (9 sets, daily range): BP systolic 129–143; BP diastolic 71–82
[2019-05-15] MEDS ORDERED: INS NPH/REG HM 70-30 100 UNITS/ML 10ML VIAL (HUMULIN 70-30) SUBCUT ONE
[2019-05-15] MEDS ORDERED: INSULIN REGULAR (HUMULIN R) 300UNITS/3ML SUBCUT ONE (01:45)
[2019-05-15] MEDS ORDERED: IPRATROPIUM/ALBUTEROL 0.5-3(2.5)MG/3ML NEB HHN ONE (02:00)
[2019-05-15] MEDS ORDERED: FUROSEMIDE 40MG TABLET PO ONE (02:00)
[2019-05-15] MEDS ORDERED: DEXTROSE 50% WATER 50ML SYRINGE IV PRN (02:45)
[2019-05-15] MEDS ORDERED: ACETAMINOPHEN 325MG TABLET PO PRN (02:45)
[2019-05-15] MEDS ORDERED: CLONIDINE 0.1MG TABLET PO PRN (02:45)
[2019-05-15] MEDS ORDERED: CEFTRIAXONE 1 G PREMIX 50 ML IV ONE (03:00)
[2019-05-15] MEDS ORDERED: AZITHROMYCIN 500 MG in DEXT 5% WATER 250 ML IV ONE (03:00)
[2019-05-15 05:24] LABS: CLARITY URINE CLEAR (CLEAR); COLOR URINE YELLOW (YELLOW); KETONES URINE TRACE (NEGATIVE); LEUKOCYTE ESTERASE URINE NEGATIVE (NEGATIVE); NITRITE URINE NEGATIVE (NEGATIVE); OCCULT BLOOD URINE TRACE (NEGATIVE); PROTEIN URINE 1+ (NEGATIVE); SPECIFIC GRAVITY URINE 1.017 (1.005-1.030); UROBILINOGEN URINE 0.2 E.U./dL (0.2-1.0)
[2019-05-15] MEDS: INSULIN LISPRO (MEDIUM DOSE) 100 UNITS/ML SUBCUT SCH ×3 (05:25→18:03)
[2019-05-15 05:38] LABS: *AMPHETAMINES SCREEN URINE NEGATIVE (NEGATIVE); *BARBITURATES SCREEN URINE NEGATIVE (NEGATIVE)
[2019-05-15 05:39] LABS: *BENZODIAZEPINES SCREEN URINE NEGATIVE (NEGATIVE); *COCAINE SCREEN URINE NEGATIVE (NEGATIVE); METHADONE URINE SCREEN NEGATIVE (NEGATIVE); OPIATES URINE SCREEN NEGATIVE (NEGATIVE)
[2019-05-15 05:41] LABS: CANNABINOID URINE SCREEN NEGATIVE (NEGATIVE); PHENCYCLIDINE URINE SCREEN NEGATIVE (NEGATIVE)
[2019-05-15] MEDS ORDERED: IPRATROPIUM/ALBUTEROL 0.5-3(2.5)MG/3ML NEB HHN PRN (11:15)
[2019-05-15] MEDS ORDERED: INSULIN GLARGINE UD 100 UNITS/ML SYR SUBCUT NR (12:00)
[2019-05-15 12:29] LABS: HEMOGLOBIN. 12.6 g/dL (14.0-18.0); MEAN CORPUSCULAR VOLUME 90.8 fL (80.0-94.0); MEAN PLATELET VOLUME 9.5 fl (7.4-10.4); PLATELET 216 x1000/uL (130-400); RED BLOOD CELL COUNT 4.07 mill/uL (4.7-6.1); RED CELL DISTRIBUTION WIDTH 14.3 % (11.6-14.6)
[2019-05-15 12:29] LABS: BG BASE EXCESS 2.7 mmol/L (-2.0-2.0); BG BILEVEL POS AIRWAY PRESSURE 15/5; BG CARBOXYHEMOGLOBIN 0.4 % (0.5-1.5); BG DEOXYHEMOGLOBIN 1.9 % (0.0-5.0); BG FRACTION INSPIRED OXYGEN 50; BG HCO3 ACT 25.7 mmol/L (22.0-26.0); BG METHEMOGLOBIN 0.3 % (0.0-1.5); BG OXYGEN SATURATION 98.1 % (92.0-98.5); BG OXYHEMOGLOBIN 97.4 % (94.0-97.0); BG PCO2 34.4 mmHg (35.0-45.0); BG PH 7.491 (7.350-7.450); BG PO2 107.8 mmHg (75.0-100.0); BG SAMPLE SITE RIGHT RADIAL; BG VENT MODE MASK - BIPAP; BG VENT RATE 16 set
[2019-05-15] MEDS: IPRATROPIUM/ALBUTEROL 0.5-3(2.5)MG/3ML NEB HHN SCH ×2 (12:31→21:43)
[2019-05-15] MEDS: BLOOD SUGAR DIAGNOSTIC STRIP TEST SCH ×3 (12:35→21:37)
[2019-05-15 12:41] LABS: CHLORIDE 104 mEq/L (98-107)
[2019-05-15] MEDS ORDERED: LEVOFLOXACIN 500MG PREMIX 100 ML IV SCH (13:00)
[2019-05-15] MEDS: CARVEDILOL 3.125 MG TABLET PO SCH ×2 (13:19→21:37)
[2019-05-15] MEDS: METHYLPREDNISOLONE SOD SUCC 40 MG/ML VIAL IV SCH ×2 (13:19→21:36)
[2019-05-15] MEDS: FUROSEMIDE 40MG/4ML VIAL IVP SCH (13:20)
[2019-05-15] MEDS: DILTIAZEM HCL 30MG TABLET PO SCH ×2 (13:20→21:36)
[2019-05-15 14:25] LABS: PLATELET ESTIMATE NORMAL
[2019-05-15] MEDS ORDERED: INSULIN LISPRO 100 UNITS/ML SUBCUT NR (22:15)
[2019-05-16] VITALS (12 sets, daily range): BP systolic 127–167; BP diastolic 45–101
[2019-05-16] MEDS: IPRATROPIUM/ALBUTEROL 0.5-3(2.5)MG/3ML NEB HHN SCH ×4 (02:45→22:16)
[2019-05-16] MEDS: METHYLPREDNISOLONE SOD SUCC 40 MG/ML VIAL IV SCH ×3 (05:24→21:34)
[2019-05-16] MEDS: DILTIAZEM HCL 30MG TABLET PO SCH ×3 (05:26→21:34)
[2019-05-16 06:52] LABS: HEMATOCRIT 36.7 % (42.0-52.0); HEMOGLOBIN 12.5 g/dL (14.0-18.0); MEAN CORPUSCULAR HEMOGLOBIN 30.9 pg (28.0-32.0); MEAN CORPUSCULAR VOLUME 90.9 fL (80.0-94.0); PLATELET 220 x1000/uL (130-400); RED BLOOD CELL COUNT 4.04 mill/uL (4.7-6.1); RED CELL DISTRIBUTION WIDTH 14.4 % (11.6-14.6)
[2019-05-16 07:13] LABS: CHLORIDE 104 mEq/L (98-107)
[2019-05-16] MEDS: BLOOD SUGAR DIAGNOSTIC STRIP TEST SCH ×4 (08:26→21:34)
[2019-05-16] MEDS: FUROSEMIDE 40MG/4ML VIAL IVP SCH (09:48)
[2019-05-16] MEDS: CARVEDILOL 3.125 MG TABLET PO SCH ×2 (09:48→21:35)
[2019-05-16] MEDS: INSULIN LISPRO 100 UNITS/ML SUBCUT SCH ×4 (09:53→21:00)
[2019-05-16] MEDS ORDERED: INSULIN GLARGINE UD 100 UNITS/ML SYR SUBCUT SCH (10:00)
[2019-05-16] MEDS ORDERED: POTASSIUM CHLORIDE 20MEQ TABLET SR PO NR (11:00)
[2019-05-16] MEDS ORDERED: LEVOFLOXACIN 250MG PREMIX 50 ML IV SCH (13:00)
[2019-05-16] MEDS: MEROPENEM 1,000 MG in SODIUM CHLORIDE 0.9% 100 ML IV SCH ×2 (17:17→23:27)
[2019-05-16] MEDS ORDERED: INSULIN LISPRO 100 UNITS/ML SUBCUT NR (22:30)
[2019-05-17] VITALS (11 sets, daily range): BP systolic 139–167; BP diastolic 36–97
[2019-05-17] MEDS: IPRATROPIUM/ALBUTEROL 0.5-3(2.5)MG/3ML NEB HHN SCH ×3 (00:57→14:33)
[2019-05-17] MEDS: METHYLPREDNISOLONE SOD SUCC 40 MG/ML VIAL IV SCH (05:15)
[2019-05-17] MEDS: DILTIAZEM HCL 30MG TABLET PO SCH ×2 (05:15→14:21)
[2019-05-17 06:26] LABS: HEMATOCRIT 39.4 % (42.0-52.0); HEMOGLOBIN 13.5 g/dL (14.0-18.0); MEAN CORPUSCULAR HEMOGLOBIN 31.1 pg (28.0-32.0); MEAN CORPUSCULAR VOLUME 91.1 fL (80.0-94.0); PLATELET 227 x1000/uL (130-400); RED BLOOD CELL COUNT 4.33 mill/uL (4.7-6.1); RED CELL DISTRIBUTION WIDTH 14.3 % (11.6-14.6)
[2019-05-17 06:32] LABS: CHLORIDE 104 mEq/L (98-107)
[2019-05-17] MEDS: BLOOD SUGAR DIAGNOSTIC STRIP TEST SCH ×3 (08:05→17:11)
[2019-05-17] MEDS: FUROSEMIDE 40MG/4ML VIAL IVP SCH (08:37)
[2019-05-17] MEDS: MEROPENEM 1,000 MG in SODIUM CHLORIDE 0.9% 100 ML IV SCH ×2 (08:38→16:13)
[2019-05-17] MEDS: INSULIN LISPRO 100 UNITS/ML SUBCUT SCH ×3 (08:42→17:57)
[2019-05-17] MEDS: CARVEDILOL 3.125 MG TABLET PO SCH (08:47)
[2019-05-17] MEDS ORDERED: INSULIN GLARGINE UD 100 UNITS/ML SYR SUBCUT SCH ×4 (10:00→22:00)
[2019-05-17] MEDS ORDERED: LACTULOSE 20G/30ML UDC PO NR (13:00)
[2019-05-17] MEDS ORDERED: NA PHOS,M-B/NA PHOS,DI-BA ENEMA 118ML PR PRN (13:00)
[2019-05-17] MEDS ORDERED: DOCUSATE SODIUM 100MG CAPSULE PO SCH (17:00)
[2019-05-17] MEDS ORDERED: METHYLPREDNISOLONE SOD SUCC 40 MG/ML VIAL IV SCH (20:00)
== END 2019-05-17 23:36 | DRG 871 ==
LOC: ER 18:48 → 5EST 23:33 → EDBEDREQTM 23:40 → EDBEDREQ 23:40 → EDBEDREQDT 05-15 03:03 → EDBEDREQTM 05-15 03:03 → EDBEDREQSVC 05-15 03:03 → ENRESERV 05-15 07:58 → 5EST 05-16 06:42
PROVIDERS: ADMIT Internal Medicine; ATTEND Internal Medicine
PROC: 5A09357 Assistance with Respiratory Ventilation, Less than 24 Consecutive Hours, Continuous Positive Airway Pressure (ICD-10-PCS; principal; 2019-05-15)
PROC: 5A09357 Assistance with Respiratory Ventilation, Less than 24 Consecutive Hours, Continuous Positive Airway Pressure (ICD-10-PCS; 2019-05-16)
DX: A41.9 Sepsis, unspecified organism (principal); I50.43 Acute on chronic combined systolic (congestive) and diastolic (congestive) heart failure; J96.01 Acute respiratory failure with hypoxia; J18.1 Lobar pneumonia, unspecified organism; J44.1 Chronic obstructive pulmonary disease with (acute) exacerbation; J44.0 Chronic obstructive pulmonary disease with (acute) lower respiratory infection; I69.354 Hemiplegia and hemiparesis following cerebral infarction affecting left non-dominant side; I11.0 Hypertensive heart disease with heart failure; E11.65 Type 2 diabetes mellitus with hyperglycemia; D64.9 Anemia, unspecified; E78.5 Hyperlipidemia, unspecified; E87.6 Hypokalemia; N40.0 Benign prostatic hyperplasia without lower urinary tract symptoms; Z53.20 Procedure and treatment not carried out because of patient's decision for unspecified reasons; K59.00 Constipation, unspecified; D63.1 Anemia in chronic kidney disease; F41.9 Anxiety disorder, unspecified; K80.20 Calculus of gallbladder without cholecystitis without obstruction; Z91.19 Patient's noncompliance with other medical treatment and regimen; Z87.891 Personal history of nicotine dependence; Z79.899 Other long term (current) drug therapy
CPT/HCPCS: 36415; 36600; 71045; 71250; 80048; 80053; 80305; 81003; 82375; 82805; 82962; 83605; 83880; 84484; 85025; 85027; 87077; 87804; 93005; 94640; 94660; 97116; 97162; 99285; J0456; J0696; J1815; J1940; J1956; J2185; J2920; J7050; J7060

== ENCOUNTER 2019-07-25 08:08 | Emergency (ER) | payer OTHER ==
[~2019-07-25] VITALS: Ht 180.3 cm; Wt 88.0 kg
[2019-07-25 08:46] LABS: HEMATOCRIT. 34.2 % (42.0-52.0); HEMOGLOBIN. 11.3 g/dL (14.0-18.0); MEAN CORPUSCULAR HEMOGLOBIN 30.8 pg (28.0-32.0); MEAN CORPUSCULAR VOLUME 93.5 fL (80.0-94.0); PLATELET 216 x1000/uL (130-400); RED BLOOD CELL COUNT 3.66 mill/uL (4.7-6.1); RED CELL DISTRIBUTION WIDTH 16.1 % (11.6-14.6)
[2019-07-25 08:54] LABS: CHLORIDE 102 mEq/L (98-107)
[2019-07-25] MEDS ORDERED: METHYLPREDNISOLONE SOD SUCC 125 MG/2 ML VIAL IV STA (09:10)
[2019-07-25] MEDS ORDERED: LEVOFLOXACIN 750MG PREMIX 150 ML IV ONE (09:15)
[2019-07-25 09:34] LABS: PLATELET ESTIMATE NORMAL
[2019-07-25 10:30] VITALS: BP 145/95
== END 2019-07-25 10:30 | disposition home or self-care (01) ==
LOC: ER 08:08
DX: J44.1 Chronic obstructive pulmonary disease with (acute) exacerbation (principal); J44.9 Chronic obstructive pulmonary disease, unspecified; E11.9 Type 2 diabetes mellitus without complications; I10 Essential (primary) hypertension; Z79.899 Other long term (current) drug therapy
CPT/HCPCS: 36415; 71045; 80053; 83880; 84484; 85025; 93005; 96374; 99285; J2930; J1956

== ENCOUNTER 2019-08-28 13:53 | Inpatient (IN) | payer OTHER ==
[~2019-08-28] VITALS: Ht 182.9 cm; Wt 71.9 kg
[2019-08-28] MEDS ORDERED: METHYLPREDNISOLONE SOD SUCC 125 MG/2 ML VIAL IV STA (14:36)
[2019-08-28] MEDS ORDERED: IPRATROPIUM BROMIDE (0.02%) 0.5MG/2.5ML NEB HHN STA (14:36)
[2019-08-28] MEDS ORDERED: ALBUTEROL (0.083%) 2.5MG/3ML NEB HHN STA (14:36)
[2019-08-28 14:57] LABS: BASOPHILS % 0.8 % (0.0-2.0); EOSINOPHILS % 1.3 % (0.0-5.0); HEMATOCRIT. 36.2 % (42.0-52.0); HEMOGLOBIN. 12.4 g/dL (14.0-18.0); LYMPHOCYTES % 9.7 % (20.0-50.0); MEAN CORPUSCULAR HEMOGLOBIN 31.2 pg (28.0-32.0); MEAN CORPUSCULAR VOLUME 91.3 fL (80.0-94.0); MEAN PLATELET VOLUME 10.3 fl (7.4-10.4); NEUTROPHILS % 83.2 % (40.0-76.0); PLATELET 207 x1000/uL (130-400); RED BLOOD CELL COUNT 3.97 mill/uL (4.7-6.1); RED CELL DISTRIBUTION WIDTH 15.4 % (11.6-14.6)
[2019-08-28 15:04] LABS: CHLORIDE 104 mEq/L (98-107)
[2019-08-28] MEDS ORDERED: INSULIN REGULAR (HUMULIN R) 300UNITS/3ML SUBCUT ONE (16:45)
[2019-08-28] MEDS ORDERED: INSULIN LISPRO 100 UNITS/ML SUBCUT ONE (19:45)
[2019-08-29] MEDS ORDERED: SODIUM CHLORIDE 0.45% 1,000 ML IV SCH (01:01)
[2019-08-29] MEDS ORDERED: CLONIDINE 0.1MG TABLET PO PRN (01:15)
[2019-08-29] MEDS ORDERED: DOCUSATE SODIUM 100MG CAPSULE PO PRN (01:15)
[2019-08-29] MEDS ORDERED: ACETAMINOPHEN 325MG TABLET PO PRN (01:15)
[2019-08-29] MEDS ORDERED: ONDANSETRON HCL 4MG/2ML INJ IV PRN (01:15)
[2019-08-29] MEDS: IPRATROPIUM/ALBUTEROL 0.5-3(2.5)MG/3ML NEB HHN SCH ×3 (07:41→21:21)
[2019-08-29] MEDS: ASPIRIN 81MG EC TABLET PO SCH (09:47)
[2019-08-29] MEDS: ENOXAPARIN 40MG/0.4ML SYR SUBCUT SCH (09:48)
[2019-08-29 12:26] LABS: *BARBITURATES SCREEN URINE NEGATIVE (NEGATIVE)
[2019-08-29 12:27] LABS: *AMPHETAMINES SCREEN URINE NEGATIVE (NEGATIVE); *BENZODIAZEPINES SCREEN URINE NEGATIVE (NEGATIVE); *COCAINE SCREEN URINE NEGATIVE (NEGATIVE); METHADONE URINE SCREEN NEGATIVE (NEGATIVE); OPIATES URINE SCREEN NEGATIVE (NEGATIVE); PHENCYCLIDINE URINE SCREEN NEGATIVE (NEGATIVE)
[2019-08-29 12:28] LABS: CANNABINOID URINE SCREEN NEGATIVE (NEGATIVE)
[2019-08-29] MEDS ORDERED: DEXTROSE 50% WATER 50ML SYRINGE IV PRN (13:30)
[2019-08-29 14:20] VITALS: BP 138/76
[2019-08-29 15:20] VITALS: BP 138/76
[2019-08-29 16:00] VITALS: BP 141/79
[2019-08-29] MEDS: BLOOD SUGAR DIAGNOSTIC STRIP TEST SCH ×2 (17:55→21:00)
[2019-08-29 17:56] LABS: BASOPHILS % 0.3 % (0.0-2.0); EOSINOPHILS % 0.1 % (0.0-5.0); HEMATOCRIT. 34.4 % (42.0-52.0); HEMOGLOBIN. 11.5 g/dL (14.0-18.0); MEAN CORPUSCULAR HEMOGLOBIN 30.5 pg (28.0-32.0); MEAN CORPUSCULAR VOLUME 91.4 fL (80.0-94.0); MEAN PLATELET VOLUME 10.3 fl (7.4-10.4); MONOCYTES % 8.8 % (2.0-8.0); NEUTROPHILS % 80.8 % (40.0-76.0); PLATELET 198 x1000/uL (130-400); RED BLOOD CELL COUNT 3.76 mill/uL (4.7-6.1)
[2019-08-29] MEDS: INSULIN LISPRO 100 UNITS/ML SUBCUT SCH ×2 (18:05→23:45)
[2019-08-29 18:06] LABS: CHLORIDE 105 mEq/L (98-107)
[2019-08-29 18:33] LABS: HEPATITIS B SURFACE ANTIGEN NEGATIVE
[2019-08-29 19:02] LABS: HEPATITIS A AB IGM NEGATIVE (NEGATIVE)
[2019-08-29 20:14] VITALS: BP 121/72
[2019-08-29] MEDS: BUDESONIDE 0.5MG/2ML NEB HHN SCH (21:21)
[2019-08-29] MEDS: INSULIN GLARGINE UD 100 UNITS/ML SYR SUBCUT SCH (22:00)
[2019-08-29] MEDS ORDERED: INSULIN GLARGINE UD 100 UNITS/ML SYR SUBCUT SCH (22:00)
[2019-08-30 00:05] VITALS: BP 121/77
[2019-08-30] MEDS: IPRATROPIUM/ALBUTEROL 0.5-3(2.5)MG/3ML NEB HHN SCH ×4 (00:24→12:58)
[2019-08-30 04:00] VITALS: BP 124/83
[2019-08-30] MEDS: BLOOD SUGAR DIAGNOSTIC STRIP TEST SCH ×2 (06:45→12:11)
[2019-08-30 07:19] LABS: T4 FREE 1.07 ng/dL (0.76-1.46)
[2019-08-30] MEDS: INSULIN LISPRO 100 UNITS/ML SUBCUT SCH ×2 (07:46→12:26)
[2019-08-30 08:02] VITALS: BP 132/76
[2019-08-30] MEDS: ASPIRIN 81MG EC TABLET PO SCH (08:13)
[2019-08-30] MEDS: ENOXAPARIN 40MG/0.4ML SYR SUBCUT SCH (08:14)
[2019-08-30] MEDS ORDERED: PREDNISONE 20MG TABLET PO SCH (09:00)
[2019-08-30] MEDS: BUDESONIDE 0.5MG/2ML NEB HHN SCH (09:33)
[2019-08-30] MEDS: INSULIN GLARGINE UD 100 UNITS/ML SYR SUBCUT SCH (09:56)
[2019-08-30] MEDS ORDERED: FURO-151 MT (11:58)
[2019-08-30] MEDS ORDERED: MED4 MT (11:58)
[2019-08-30 12:00] VITALS: BP 134/75
[2019-08-30] MEDS ORDERED: FUROSEMIDE 40MG/4ML VIAL IVP NR (12:00)
[2019-08-30 13:21] VITALS: BP 134/75
== END 2019-08-30 14:38 | disposition home or self-care (01) | DRG 189 ==
LOC: ER 13:53 → 6WST 16:46 → EDBEDREQ 17:06 → EDBEDREQTM 17:06 → ENRESERV 08-29 13:30
PROVIDERS: ADMIT Internal Medicine; ATTEND Internal Medicine
DX: J96.20 Acute and chronic respiratory failure, unspecified whether with hypoxia or hypercapnia (principal); J44.1 Chronic obstructive pulmonary disease with (acute) exacerbation; E87.1 Hypo-osmolality and hyponatremia; E44.1 Mild protein-calorie malnutrition; I10 Essential (primary) hypertension; E87.5 Hyperkalemia; R74.0 Nonspecific elevation of levels of transaminase and lactic acid dehydrogenase [LDH]; E11.9 Type 2 diabetes mellitus without complications; D64.9 Anemia, unspecified; Z99.81 Dependence on supplemental oxygen; Z79.899 Other long term (current) drug therapy; Z68.21 Body mass index [BMI] 21.0-21.9, adult; I69.30 Unspecified sequelae of cerebral infarction
CPT/HCPCS: 36415; 71045; 80048; 80053; 80305; 82962; 83880; 84439; 84443; 84484; 85025; 86705; 86709; 86803; 87340; 93005; 96374; 97116; 97162; 99291; J1650; J1815; J1940; J2930; J7512; J7626